=== PATIENT | male | born 1985 | race Caucasian/White ===

== ENCOUNTER 2019-04-08 08:09 | Emergency (ER) | payer OTHER ==
[2019-04-08 08:26] VITALS: BP 93/77
[2019-04-08] MEDS ORDERED: Lidocaine 1%* 5 ML VIAL INJ ONE (08:54)
--- NOTE | 2019-04-08 09:56 | UC ---
Skin Complaint HPI - HPI Summary HPI Summary: 33-year-old male comes in with chief complaint of left-sided facial swelling. Started several days ago. Appeared To be a pimple. Discussing grown in size he did pick at it a bit which made it worse. Pushing on it makes it worse. Now it's more red and the swelling is increased starting to use bread below his jaw line. No difficulty breathing or swallowing no fevers. He did get some pus drainage out of it. No history of MRSA. - History of Current Complaint Chief Complaint: UCSkin Time Seen by Provider: 04/08/19 08:49 Stated Complaint: SKIN ISSUE Pain Intensity: 7 - Allergy/Home Medications Allergies/Adverse Reactions: Allergies Allergy/AdvReac Type Severity Reaction Status Date / Time No Known Allergies Allergy Verified 04/08/19 08:26 Home Medications: Home Medications Acetaminophen/Diphenhydramine [Tylenol Pm Ex-Strength Caplet] 1 each PO DAILY PRN 04/08/19 [History Confirmed 04/08/19] Escitalopram Oxalate [Lexapro 10 mg] 10 mg PO DAILY 04/08/19 [History Confirmed 04/08/19] PMH/Surg Hx/FS Hx/Imm Hx Previously Healthy: Yes - Surgical History Surgical History: Yes Surgery Procedure, Year, and Place: tonsils and adenoids as a child; ACL left knee,Right ring finger 1999, - Family History Known Family History: Positive: Non-Contributory - Social History Alcohol Use: None Substance Use Type: None Smoking Status (MU): Light Every Day Tobacco Smoker Amount Used/How Often: 1/2 ppd Have You Smoked in the Last Year: Yes Review of Systems All Other Systems Reviewed And Are Negative: Yes Constitutional: Positive: Negative Skin: Positive: Other - SEE HPI Eyes: Positive: Negative ENT: Positive: Negative Respiratory: Positive: Negative Cardiovascular: Positive: Negative Gastrointestinal: Positive: Negative Motor: Positive: Negative Neurovascular: Positive: Negative Musculoskeletal: Positive: Negative Neurological: Positive: Negative Psychological: Positive: Negative Is Patient Immunocompromised?: No Physical Exam Triage Information Reviewed: Yes Appearance: Well-Appearing, No Pain Distress, Well-Nourished Vital Signs: Initial Vital Signs Temp 99.0 F 04/08/19 08:20 Pulse 93 04/08/19 08:20 Resp 16 04/08/19 08:20 BP 93/77 04/08/19 08:20 Pulse Ox 100 04/08/19 08:20 Vital Signs Reviewed: Yes Eye Exam: Normal Eyes: Positive: Conjunctiva Clear ENT: Positive: Pharynx normal, Uvula midline, Other - SWELLING LEFT FACE OVER THE MASSETER, SOME SPREAD INFERIOR OVER THE JAW LINE. POSITIVE ERYTHEMA. TENDER TO PALPATION Dental Exam: Normal Neck: Positive: Supple Respiratory: Positive: Lungs clear, Normal breath sounds, No respiratory distress Cardiovascular: Positive: RRR Musculoskeletal Exam: Normal Musculoskeletal: Positive: Strength Intact, ROM Intact Neurological Exam: Normal Neurological: Positive: Alert, Muscle Tone Normal Psychological Exam: Normal Psychological: Positive: Normal Response To Family, Age Appropriate Behavior Skin: Positive: Other - SWELLING LEFT FACE OVER THE MASSETER, SOME SPREAD INFERIOR OVER THE JAW LINE. POSITIVE ERYTHEMA. TENDER TO PALPATION Procedures - Incision and Drainage Left Face Anesthesia: Local, Lidocaine - 1% Instrument(s): Scalpel - #11, Other - Pus obtained Packing: Gauze - 1/4 inch plain, Other - Culture sent Course/Dx - Diagnoses Provider Diagnosis: Cutaneous abscess of face Discharge - Sign-Out/Discharge Documenting (check all that apply): Patient Departure All imaging exams completed and their final reports reviewed: No Studies - Discharge Plan Condition: Stable Disposition: HOME Prescriptions: DOXYcycline CAP(*) [DOXYcycline 100MG CAP(*)] 100 mg PO BID #20 cap HYDROcodone/ACETAMIN 5-325 MG* [[place] 5-325 TAB*] 1 tab PO Q4H PRN #15 tab MDD 6 PRN Reason: Pain Patient Education Materials: Abscess (ED) Referrals: Daja Arellano MD [Primary Care Provider] - Additional Instructions: FOLLOW UP WITH YOUR DOCTOR IF NOT COMPLETELY IMPROVED. GET RECHECKED SOONER IF YOUR CONDITION WORSENS; PAIN, FEVER, YOU FEEL ILL, DIFFICULTY SWALLOWING OR BREATHING OR ANY QUESTIONS OR CONCERNS. - Billing Disposition and Condition Condition: STABLE Disposition: Home
[2019-04-08] MEDS ORDERED: DOXYcycline CAP(*) 100 MG PO ONE (10:02)
[2019-04-08] MEDS ORDERED: Ibuprofen TAB* 600 MG PO ONE (10:02)
[2019-04-08] MEDS ORDERED: HYDROcodone/ACETAMIN 5-325 MG* 1 TAB PO ONE (10:02)
--- NOTE | 2019-04-08 15:51 | UC ---
- Progress Note Progress Note: 04/08/2019 Wound culture: Positive MRSA and S.Aureus Please call back patient and inform of results. Advised to stop taken Doxycycline PO. and start taken Bactrim PO which will cover for MRSA Thank you Abe DAVIES Course/Dx - Diagnoses Provider Diagnoses: Cutaneous abscess of face Discharge - Sign-Out/Discharge Documenting (check all that apply): Post-Discharge Follow Up All imaging exams completed and their final reports reviewed: No Studies - Discharge Plan Condition: Stable Disposition: HOME Prescriptions: DOXYcycline CAP(*) [DOXYcycline 100MG CAP(*)] 100 mg PO BID #20 cap HYDROcodone/ACETAMIN 5-325 MG* [[place] 5-325 TAB*] 1 tab PO Q4H PRN #15 tab MDD 6 PRN Reason: Pain Patient Education Materials: Abscess (ED) Referrals: Daja Arellano MD [Primary Care Provider] - Additional Instructions: FOLLOW UP WITH YOUR DOCTOR IF NOT COMPLETELY IMPROVED. GET RECHECKED SOONER IF YOUR CONDITION WORSENS; PAIN, FEVER, YOU FEEL ILL, DIFFICULTY SWALLOWING OR BREATHING OR ANY QUESTIONS OR CONCERNS. - Billing Disposition and Condition Condition: STABLE Disposition: Home
--- NOTE | 2019-04-08 16:37 | UC ---
- Progress Note Progress Note: 04/08/2019 I spoke to PT over the phone . He was informed of Positive wound culture for MTSA and s.Aureus. Pt is already taken Doxycycline PO which covers for MRSA and S.Aureus. I also spoke to Pharmacy and advised to disregard Bactrim PO Ean Avila PA-C Course/Dx - Diagnoses Provider Diagnoses: Cutaneous abscess of face Discharge - Sign-Out/Discharge Documenting (check all that apply): Post-Discharge Follow Up All imaging exams completed and their final reports reviewed: No Studies - Discharge Plan Condition: Stable Disposition: HOME Prescriptions: DOXYcycline CAP(*) [DOXYcycline 100MG CAP(*)] 100 mg PO BID #20 cap HYDROcodone/ACETAMIN 5-325 MG* [[place] 5-325 TAB*] 1 tab PO Q4H PRN #15 tab MDD 6 PRN Reason: Pain Patient Education Materials: Abscess (ED) Referrals: Daja Arellano MD [Primary Care Provider] - Additional Instructions: FOLLOW UP WITH YOUR DOCTOR IF NOT COMPLETELY IMPROVED. GET RECHECKED SOONER IF YOUR CONDITION WORSENS; PAIN, FEVER, YOU FEEL ILL, DIFFICULTY SWALLOWING OR BREATHING OR ANY QUESTIONS OR CONCERNS. - Billing Disposition and Condition Condition: STABLE Disposition: Home
== END 2019-04-08 10:09 | disposition home or self-care (01) ==
LOC: UCEAST 08:09
DX: L02.01 Cutaneous abscess of face (principal); B95.62 Methicillin resistant Staphylococcus aureus infection as the cause of diseases classified elsewhere; F17.200 Nicotine dependence, unspecified, uncomplicated
CPT/HCPCS: 10060; 87070; 87077; 87186; 87205; 87640; 87641; 99213; A9270-GY; G0463

== ENCOUNTER 2019-05-20 19:19 | Emergency (ER) | payer OTHER ==
[2019-05-20 19:37] VITALS: BP 100/77
--- NOTE | 2019-05-20 19:50 | UC ---
Skin Complaint HPI - HPI Summary HPI Summary: 34-year-old male comes in with a chief complaint of left facial redness and swelling. It happened after he shaved that area and also picked at a pimple an ingrown hair. This happened in the past she's had MRSA in there and is been treated successfully with doxycycline. No drainage no fevers no chills. Patient has chronic low back pain and is been seeing pain medicine clinic sees between clinics right now any prescription to have low back pain. Pain is worse with twisting turning bending. Patient reports chronic numbness down the right leg. Also has some difficulty with right dorsiflexion chronically. Patient reports he seen 4 different neurosurgeons at this time he has decided to not do surgery. No complaint of difficulty controlling urine or bowels. - History of Current Complaint Chief Complaint: UCSkin Time Seen by Provider: 05/20/19 19:32 Stated Complaint: FACIAL COMPLAINT Pain Intensity: 4 - Allergy/Home Medications Allergies/Adverse Reactions: Allergies Allergy/AdvReac Type Severity Reaction Status Date / Time No Known Allergies Allergy Verified 05/20/19 19:36 PMH/Surg Hx/FS Hx/Imm Hx Previously Healthy: Yes - CHRONIC LOW BACK PAIN - Surgical History Surgical History: Yes Surgery Procedure, Year, and Place: tonsils and adenoids as a child; ACL left knee,Right ring finger 1999, - Family History Known Family History: Positive: Non-Contributory - Social History Alcohol Use: None Substance Use Type: None Smoking Status (MU): Light Every Day Tobacco Smoker Type: eCigarettes Amount Used/How Often: 1/2 ppd Have You Smoked in the Last Year: Yes Review of Systems All Other Systems Reviewed And Are Negative: Yes Constitutional: Positive: Negative Skin: Positive: Other - SEE HPI Eyes: Positive: Negative ENT: Positive: Negative Respiratory: Positive: Negative Cardiovascular: Positive: Negative Gastrointestinal: Positive: Negative Motor: Positive: Other - SEE HPI Neurovascular: Positive: Other - SEE HPI Musculoskeletal: Positive: Other: - SEE HPI Neurological: Positive: Negative Psychological: Positive: Negative Is Patient Immunocompromised?: No Physical Exam Triage Information Reviewed: Yes Appearance: Well-Appearing, No Pain Distress, Well-Nourished Vital Signs: Initial Vital Signs Temp 99.5 F 05/20/19 19:31 Pulse 102 05/20/19 19:31 Resp 18 05/20/19 19:31 BP 100/77 07/01/19 19:31 Pulse Ox 98 05/20/19 19:31 Vital Signs Reviewed: Yes Eye Exam: Normal Eyes: Positive: Conjunctiva Clear ENT: Positive: Pharynx normal, Uvula midline Neck: Positive: Supple Respiratory: Positive: No respiratory distress Musculoskeletal: Positive: Other: - Tender to palpation mid lumbar spine. Bilaterally there is reported some decreased sensation in the lateral aspect of the right leg. Plantar flexion is 5 out of 5 bilaterally. Dorsiflexion is declined on the right side secondary to pain. Similarly on the right side knee flexion extension and hip flexion all illicit pain. Left leg has full range of motion and full strength. Neurological: Positive: Alert Psychological: Positive: Age Appropriate Behavior Skin: Positive: Other - On the face just above the angle of the jaw there is a 3 cm area of swelling and erythema. It's firm and tender to palpation. There is no area of fluctuance that I can appreciate for I&D at this time. There is a [address] No drainage. Course/Dx - Diagnoses Provider Diagnosis: Folliculitis barbae, Back pain Discharge - Sign-Out/Discharge Documenting (check all that apply): Patient Departure All imaging exams completed and their final reports reviewed: No Studies - Discharge Plan Condition: Stable Disposition: HOME Prescriptions: DOXYcycline CAP(*) [DOXYcycline 100MG CAP(*)] 100 mg PO BID #20 cap HYDROcodone/ACETAMIN 5-325 MG* [[place] 5-325 TAB*] 1 tab PO Q6H PRN #15 tab MDD 4 PRN Reason: Pain Patient Education Materials: Folliculitis (ED), Chronic Back Pain (DC) Referrals: Daja Arellano MD [Primary Care Provider] - Karthik Tierney MD [Medical Doctor] - Additional Instructions: FOLLOW UP WITH YOUR DOCTOR IF NOT COMPLETELY IMPROVED. GET RECHECKED SOONER IF YOUR CONDITION WORSENS; FEVER, YOU FEEL ILL, PAIN, WEAKNESS, NUMBNESS, DIFFICULTY CONTROLLING BOWEL OR BLADDER OR ANY QUESTIONS OR CONCERNS. - Billing Disposition and Condition Condition: STABLE Disposition: Home
== END 2019-05-20 19:57 | disposition home or self-care (01) ==
LOC: UCEAST 19:19
DX: M54.5 Low back pain (principal); G89.29 Other chronic pain; R20.0 Anesthesia of skin; L73.8 Other specified follicular disorders; F17.290 Nicotine dependence, other tobacco product, uncomplicated
CPT/HCPCS: 99212; G0463